=== PATIENT | male | born 1985 ===

== ENCOUNTER 2022-02-17 13:37 | Emergency (ER) | payer BC | END 2022-02-17 16:40 | disposition home or self-care (01) | LOC: JD.ED 13:37 | DX: S82.301A Unspecified fracture of lower end of right tibia, initial encounter for closed fracture (principal); W50.0XXA Accidental hit or strike by another person, initial encounter | CPT/HCPCS: 29505; 73610-26-RT; 73610-RT; 73630-26-RT; 73630-RT; 99283 ==